=== PATIENT | female | born 1970 | race Caucasian/White ===

== ENCOUNTER 2023-04-26 03:04 | Outpatient (CLI) | payer SELFPAY ==
[2023-04-27 09:40] LABS: HBs Antibody, Quant 13.9 mIU/mL (See Note); Hepatitis B Surface Ab Positive (See Note)
[2023-04-29 15:30] LABS: TB Interpretation Negative (Negative); TB1 Ag minus Nil 0.22 IU/ml
== END 2023-04-26 03:05 | disposition home or self-care (01) ==
LOC: LBO 03:05
PROVIDERS: Visit Provider Nurse Practitioner Family
DX: Z02.1 Encounter for pre-employment examination (principal)
CPT/HCPCS: 36415; 86706; 86480

== ENCOUNTER → 2023-11-09 02:26 | Outpatient (CLI) | payer OTHER, SELFPAY ==
--- NOTE | 2023-11-09 | DI.MAMMO_ITS ---
Exam(s) MAMMO SCREENING EXAM: MAMMO SCREENING CLINICAL HISTORY: SCREENING MAMMO FOR BREAST CANCER Z12.39. TECHNIQUE: Mammograms were interpreted according to the usual protocol including computer analysis w [employer] CAD system, tomosynthesis and C-view imaging. COMPARISON: No exams were available for comparison. Outside exams were requested but have not been received. FINDINGS: The breasts are composed of scattered fibroglandular densities, Breast Density category B. No suspicious microcalcifications are seen in either breast. A biopsy marker clip is noted in upper right breast. There areas of nodularity and increased tissue density in the upper outer quadrant of the right breast, not related to the biopsy marker. Spot comp ression views and ultrasound are requested for further evaluation No skin thickening or abnormal axillary lymph nodes are seen. IMPRESSION: Right breast: BI-RADS Category 0 - Assessment Incomplete: Need additional imaging evaluation Left breast: Yearly screening mammography is recommended. Breast Density - Category B, scattered fibroglandular densities. A negative radiographic report should not delay biopsy if a dominant or clinically suspicious mass is present. Up to ten percent of cancers are not identified on mammography. A negative report may reinforce clinical impression. Adenosis and dense breasts may obscure an underlying neoplasm. False positive reports average 6 to 10%. Patient will receive a letter notifying them of these results.
== END ==
PROVIDERS: Visit Provider Nurse Practitioner Family
DX: Z12.31 Encounter for screening mammogram for malignant neoplasm of breast (principal)
CPT/HCPCS: 77063; 77067

== ENCOUNTER → 2023-11-28 01:51 | Outpatient (CLI) | payer OTHER, SELFPAY ==
--- NOTE | 2023-11-28 | DI.MAMMO_ITS ---
Exam(s) MG MAMMO SCREEN CALL BACK UNI US BREAST RT LIMITED EXAM: MG MAMMO SCREEN CALL BACK UNI and U/S breast RT limited CLINICAL HISTORY: Areas of nodularity and increased tissue density, UOQ, rt breast. TECHNIQUE: Craniocaudal and mediolateral oblique Full Field Digital Mammography views of the right b reast with Computer Aided Diagnosis followed by Tomosynthesis and right breast ultrasound. COMPARISON: Comparison is made with screening mammogram from 11/09/2023. FINDINGS: Mammography/Tomosynthesis: Masses/Architectural Distortion: There is a well-circumscribed nodule in the outer right breast seen on the CC view. There may be a notch associated with this, reflecting an intraparenchymal lymph node . No area of architectural distortion is seen. Microcalcifictions: No suspicious pleomorphic-type are seen. Skin Thickening/Nipple Retraction: None. Limited right breast US: Echotexture: Normal appearance of the glandular tissue. Shadowing: No suspicious foci. Cyst: None. Solid lesions: The biopsy clip is seen at the 12 o'clock position of the right breast. No solid mass es are seen to correspond to the mammographic abnormality. Ductal dilation: None. IMPRESSION: 1. No definite evidence of malignancy is noted. 2. The mammogram will be compared with the patient's prior examinations when they arrive an addendum will be issued at that time. 3. A 3 month follow-up right mammogram is requested for re-evaluation of the right breast nodule. 4. The findings were discussed with the patient on the date of the examination. BI-RADS Category 3 - Probably Benign Finding: Recommend follow-up imaging in 3 months Breast Density - Category B - Scattered areas of fibroglandular density Breast density Category C or D implies that the patient has dense breast tissue. Dense breast tissue can make it harder to find cancer on a mammogram. Dense breast tissue is also associated with an incr eased risk of breast cancer. This information about the result of the mammogram report was provided to the patient to raise their awareness. Use this report when you speak with the patient about their risks for breast cancer, which includes their family history. At that time, you may recommend additional screening tests (Ultrasoun d or MRI) as these tests may add significant information. A negative radiographic report should not delay biopsy if a dominant or clinically suspicious mass is present. Up to ten percent of cancers are not identified on mammography. A negative report may reinforce clinical impression. Adenosis and dense breasts may obscure an underlying neoplasm. False positive reports average 6 to 10%. Patient will receive a letter notifying them of these results.
== END ==
PROVIDERS: Visit Provider Nurse Practitioner Family
DX: N63.11 Unspecified lump in the right breast, upper outer quadrant (principal)
CPT/HCPCS: 76642; 77063; 77067

== ENCOUNTER 2023-12-06 15:21 | Outpatient (REF) | payer OTHER, SELFPAY ==
[2023-12-06 22:49] LABS: Hemoglobin A1C 5.1 % (<5.7)
[2023-12-06 23:03] LABS: Calcium 9.5 mg/dL (8.5-10.1); Glucose 88 mg/dL (74-106)
[2023-12-06 23:04] LABS: ALT 24 U/L (14-59); AST 16 U/L (15-37); Albumin 4.2 g/dL (3.4-5.0); Alkaline Phosphatase 91 U/L (46-116); Anion Gap 9.9 mmol/L (3-11); BUN 13 mg/dL (7-18); Bilirubin, Total 0.72 mg/dL (0.2-1.0); CO2 28.1 mmol/L (21.0-32.0); Calculated LDL 186 mg/dL (<100); Chloride 104 mmol/L (98-107); Cholesterol 252 mg/dL (<200); Estimated GFR 67.78 (mL/min/1.73m2); HDL Cholesterol 47 mg/dL (40-60); Sodium 142 mmol/L (136-145); TSH 1.13 uIU/Ml (0.36-3.74); Total Protein 7.7 g/dL (6.4-8.2); Triglyceride 99 mg/dL (<150)
[2023-12-06 23:21] LABS: FREE T4 0.97 ng/dL (0.76-1.46)
== END 2023-12-06 15:22 | disposition home or self-care (01) ==
LOC: NCHCN 15:21
PROVIDERS: PCP Nurse Practitioner Family; Visit Provider Nurse Practitioner Family
DX: E78.2 Mixed hyperlipidemia (principal); Z13.1 Encounter for screening for diabetes mellitus; E66.8 Other obesity; Z68.33 Body mass index [BMI] 33.0-33.9, adult
CPT/HCPCS: 80053; 80061; 83036; 84439; 84443

== ENCOUNTER 2025-01-15 13:06 | Outpatient (CLI) | payer OTHER, SELFPAY ==
[2025-01-15 12:05] LABS: ALT 22 U/L (14-59); AST 22 U/L (15-37); Albumin 4.4 g/dL (3.4-5.0); Alkaline Phosphatase 66 U/L (46-116); Anion Gap 10.3 mmol/L (3-11); BUN 16 mg/dL (7-18); Bilirubin, Total 0.6 mg/dL (0.2-1.0); CO2 26.7 mmol/L (21.0-32.0); Calcium 9.4 mg/dL (8.5-10.1); Calculated LDL 179 mg/dL (<100); Chloride 103 mmol/L (98-107); Cholesterol 240 mg/dL (<200); Estimated GFR 67.36 (mL/min/1.73m2); Glucose 86 mg/dL (74-106); HDL Cholesterol 46 mg/dL (>or=50); Potassium 3.3 mmol/L (3.5-5.1); Sodium 140 mmol/L (136-145); Total Protein 7.8 g/dL (6.4-8.2); Triglyceride 75 mg/dL (<150)
== END 2025-01-15 13:07 | disposition home or self-care (01) ==
LOC: LBO 13:06
PROVIDERS: PCP Nurse Practitioner Family; Visit Provider Physician Assistant
DX: E78.5 Hyperlipidemia, unspecified (principal)
CPT/HCPCS: 36415; 80053; 80061